=== PATIENT | female | born 1995 | race American Indian/Alaskan Native ===

== ENCOUNTER 2018-05-07 10:38 | Emergency (ER) | payer MEDICAID ==
[2018-05-07 11:03] VITALS: BP 102/55
[2018-05-07 11:55] LABS: HCG Qualitative,Urine Positive (Negative)
[2018-05-07 12:02] LABS: Bilirubin,Urine NEG (Negative); Blood,Urine NEG (Negative); Calcium Oxalate Crystals,Urine 3+; Color,Urine Amber (Yellow); Mucus,Urine 3+ /HPF
--- NOTE | 2018-05-07 12:14 | Emergency Department Report ---
ED Female HPI - General Chief complaint: Abdominal Pain Stated complaint: MISCARRIAGE/BLEEDING Time Seen by Provider: 05/07/18 11:40 Source: patient Mode of arrival: Ambulatory Limitations: No Limitations - History of Present Illness Initial comments: Patient is a 22-year-old female who presents to the state and she had a 2 day episode of bleeding about last week. She states that she needs to call home tests that was positive she started having some abdominal pain since she came in to be evaluated. She denies fevers/chills/chest pains or shortness of breath. MD Complaint: vaginal bleeding Are you Now?: Yes Associated Symptoms: abdominal pain, nausea/vomiting - Related Data Sexually active: Yes : 3 Para: 2 Previous Rx's Medication Instructions Recorded Last Taken Type Acetaminophen [Tylenol 8 Hour] 650 mg PO TID #30 tablet.er 05/07/18 Unknown Rx Doxylamine Succinate/Vit B6 2 each PO QHS #40 tablet. 05/07/18 Unknown Rx [Joel Hunt 10-10 mg Tablet] Pnv No.95/Ferrous Fum/Folic AC 1 each PO DAILY #40 tablet 05/07/18 Unknown Rx [Prenavite Tablet] Allergies Allergy/AdvReac Type Severity Reaction Status Date / Time No Known Allergies Allergy Unverified 05/07/18 10:59 ED Review of Systems ROS: Stated complaint: MISCARRIAGE/BLEEDING Other details as noted in HPI Comment: All other systems reviewed and negative ED Past Medical Hx - Past Medical History Previous Medical History?: No - Surgical History Past Surgical History?: No - Social History Smoking Status: Never Smoker Substance Use Type: Marijuana - Medications Home Medications: Home Medications Medication Instructions Recorded Confirmed Last Taken Type Acetaminophen [Tylenol 8 Hour] 650 mg PO TID #30 tablet.er 05/07/18 Unknown Rx Doxylamine Succinate/Vit B6 2 each PO QHS #40 tablet. 05/07/18 Unknown Rx [Joel Hunt 10-10 mg Tablet] Pnv No.95/Ferrous Fum/Folic AC 1 each PO DAILY #40 tablet 05/07/18 Unknown Rx [Prenavite Tablet] ED Physical Exam - General Limitations: No Limitations General appearance: alert, in no apparent distress - Head Head exam: Present: atraumatic, normocephalic - Eye Eye exam: Present: normal appearance - ENT ENT exam: Present: mucous membranes moist - Neck Neck exam: Present: normal inspection - Respiratory Respiratory exam: Present: normal lung sounds bilaterally. Absent: respiratory distress - Cardiovascular Cardiovascular Exam: Present: regular rate, normal rhythm. Absent: systolic murmur, diastolic murmur, rubs, gallop - GI/Abdominal GI/Abdominal exam: Present: soft, normal bowel sounds - Extremities Exam Extremities exam: Present: normal inspection - Back Exam Back exam: Present: normal inspection - Neurological Exam Neurological exam: Present: alert, oriented X3 - Psychiatric Psychiatric exam: Present: normal affect, normal mood - Skin Skin exam: Present: warm, dry, intact, normal color. Absent: rash ED Course Vital Signs 05/07/18 10:59 Temperature 97.5 F L Pulse Rate 66 Respiratory 18 Rate Blood Pressure 102/55 O2 Sat by Pulse 100 Oximetry ED Medical Decision Making - Radiology Data Radiology results: report reviewed, image reviewed Single intrauterine as several weeks. Small subchorionic hemorrhage. Otherwise normal - Medical Decision Making 22-year-old female presents to ED with threatened ED course: Pt received ultra sound, CBC, urinalysis, test and quantitative ED All labs within normal limits, quantitative elevated matching gestation age Patient states that bleeding is resolved when she is went into the bathroom to check Ultrasound shows single IUP gestation at 7 weeks See reported above Vital signs normalized patient is in no acute distress. I discussed with the patient if follow-up with her [facility]. I discussed all labs and ultrasound findings with the patient. I discussed with the patient that he if bleeding worsens or new symptoms develop to return to ED immediately Critical care attestation.: If time is entered above; I have spent that time in minutes in the direct care of this critically ill patient, excluding procedure time. ED Disposition Clinical Impression: Threatened , Normal IUP (intrauterine ) on ultrasound Disposition: TO HOME OR SELFCARE Is pt being admited?: No Condition: Stable Instructions: Threatened Miscarriage (ED), (ED), Abdominal Pain (ED) Additional Instructions: Make sure to follow up with the OBGYN as discussed. Take all your medications as you've been prescribed. If you have any worsening symptoms or develop new symptoms please return to ED immediately. Prescriptions: Doxylamine Succinate/Vit B6 [Joel Hunt 10-10 mg Tablet] 2 each PO QHS #40 tablet. Acetaminophen [Tylenol 8 Hour] 650 mg PO TID #30 tablet.er Pnv No.95/Ferrous Fum/Folic AC [Prenavite Tablet] 1 each PO DAILY #40 tablet Ref[facility]: [facility] RONALDO [Primary Care Provider] - 3-5 Days DAVIDE PENNINGTON MD [Staff Physician] - 3-5 Days KRISSY PENNINGTON MD [Referring] - 3-5 Days REYNA PENNINGTON MD [Referring] - 3-5 Days Forms: Work/School Release Form(ED) Time of Disposition: 14:29
--- NOTE | 2018-05-07 15:01 | Ultrasound Report ---
ULTRASOUND OB LESS THAN 14 WEEKS FETUS ULTRASOUND OB TRANSVAGINAL HISTORY: Vaginal bleeding TECHNIQUE: Transabdominal and transvaginal imaging. FINDINGS: The uterus is anteverted. The uterus measures 10.0 x 5.9 x 5.9 cm. No uterine fibroid disease is identified. The cervix is unremarkable. An intrauterine gestational sac containing a small pole and yolk sac is identified. heart rate measures 127 beats per minute. [place]-rump length measures 10.9 mm which correlates with a 7 week, 1 day . A small subchorionic hemorrhage is suspected along the inferior border of the gestational sac. The right ovary measures 3.9 x 2.6 x 2.4 cm. A 1.7 cm complex area is identified in the right ovary which is consistent with a corpus luteum cyst. The left ovary measures 3.3 x 1.2 x 2.6 cm. Normal follicles are identified in the left ovary. There appears to be a mild degree of fluid in the left fallopian tubules suggesting mild left hydrosalpinx. No pelvic ascites. IMPRESSION: Viable, single intrauterine as described. Small subchorionic hemorrhage. Mild left hydrosalpinx?
== END 2018-05-07 14:42 | disposition home or self-care (01) ==
LOC: ED 10:38
DX: O20.0 Threatened abortion (principal); Z3A.01 Less than 8 weeks gestation of pregnancy; F12.10 Cannabis abuse, uncomplicated
CPT/HCPCS: 36415; 76801; 76817; 81001; 81025; 84702